=== PATIENT | female | born 1985 | race Caucasian/White ===

== ENCOUNTER → 2016-11-25 | Outpatient (CLI) | payer OTHER ==
[~2016-11-25] MED LIST: NOHOMEMEDICATIONS; NORCO 5-325 TA1 EACH PO
== END ==
LOC: RAD 11:22
DX: R92.8 Other abnormal and inconclusive findings on diagnostic imaging of breast (principal)

== ENCOUNTER 2017-03-08 16:40 | Emergency (ER) | payer OTHER ==
[~2017-03-08] VITALS: Ht 157.5 cm; Wt 67.1 kg
[2017-03-08] MEDS ORDERED: CITALOPRAM HBR40 MG PO (17:06)
[2017-03-08 18:42] VITALS: BP 116/75
== END 2017-03-08 18:51 | disposition home or self-care (01) ==
LOC: ER 16:40
DX: R10.9 Unspecified abdominal pain (principal); R11.2 Nausea with vomiting, unspecified; F10.99 Alcohol use, unspecified with unspecified alcohol-induced disorder; Z90.49 Acquired absence of other specified parts of digestive tract; Z88.1 Allergy status to other antibiotic agents

== ENCOUNTER → 2018-11-02 | Outpatient (CLI) | payer BC, OTHER ==
[~2018-11-02] MED LIST changes: +CITALOPRAM HBR40 MG PO
== END ==
LOC: RAD 10:30
DX: N64.4 Mastodynia (principal)

== ENCOUNTER → 2018-12-26 | Outpatient (CLI) | payer BC, OTHER | LOC: ULTRA 01:34 | DX: R92.2 Inconclusive mammogram (principal) ==

== ENCOUNTER → 2019-08-28 | Outpatient (CLI) | payer BC, OTHER | LOC: BC 07-29 10:23 → RAD 07-29 12:42 | DX: N64.89 Other specified disorders of breast (principal) ==